=== PATIENT | female | born 1995 | race Caucasian/White ===

== ENCOUNTER 2019-05-12 23:08 | Outpatient (REF) | payer MEDICAID, SELFPAY ==
[2019-05-12 22:13] LABS: TSH (W/Ref FT4) 0.46 uIU/mL (0.36-3.74)
== END 2019-05-12 23:28 ==
LOC: LBN 23:08
PROVIDERS: PCP Internal Medicine; Visit Provider Internal Medicine
DX: E03.9 Hypothyroidism, unspecified (principal)
CPT/HCPCS: 84443

== ENCOUNTER 2020-05-17 16:58 | Outpatient (REF) | payer MEDICAID, SELFPAY | END 2020-05-17 17:18 | LOC: LBO 16:58 | PROVIDERS: PCP Internal Medicine; Visit Provider Internal Medicine | DX: E03.9 Hypothyroidism, unspecified (principal) | CPT/HCPCS: 84443 ==

== ENCOUNTER 2021-05-09 22:05 | Outpatient (REF) | payer MEDICAID, SELFPAY ==
[2021-05-09 20:07] LABS: TSH (W/Ref FT4) 2.51 uIU/mL (0.36-3.74)
== END 2021-05-09 22:06 | disposition home or self-care (01) ==
LOC: LBN 22:05
PROVIDERS: PCP Internal Medicine; Visit Provider Internal Medicine
DX: E03.9 Hypothyroidism, unspecified (principal)
CPT/HCPCS: 84443

== ENCOUNTER 2022-03-20 15:35 | Outpatient (REF) | payer MEDICAID, SELFPAY | END 2022-03-20 15:36 | disposition home or self-care (01) | LOC: LBN 15:35 | PROVIDERS: PCP Internal Medicine; Referring Provider Internal Medicine; Visit Provider Internal Medicine | DX: E03.9 Hypothyroidism, unspecified (principal); R03.0 Elevated blood-pressure reading, without diagnosis of hypertension | CPT/HCPCS: 84443 ==

== ENCOUNTER 2023-01-09 15:43 | Outpatient (REF) | payer MEDICAID, SELFPAY ==
[2023-01-09 19:14] LABS: HCT 30.9 % (36.0-46.0); HGB 9.7 g/dL (11.2-15.7); MCHC 31.4 % (32.0-36.0); MCV 83 fL (80-95); MPV 11.2 fL (8.0-11.0); Platelet Count 444 10^3/uL (130-400); RBC 3.73 10^6/uL (3.93-5.22); RDW 17.5 % (11.7-14.6); RDW-SD 52.5 fL
[2023-01-09 19:42] LABS: ALT 15 U/L (14-59); AST 11 U/L (15-37); Albumin 3.1 g/dL (3.4-5.0); Alkaline Phosphatase 57 U/L (46-116); Anion Gap 9.1 mmol/L (3-11); BUN 11 mg/dL (7-18); Bilirubin, Total 0.2 mg/dL (0.2-1.0); CO2 26.9 mmol/L (21.0-32.0); CREATININE 0.7 mg/dL (0.55-1.02); Calcium 8.3 mg/dL (8.5-10.1); Calculated LDL 151 mg/dL (<100); Chloride 104 mmol/L (98-107); Cholesterol 265 mg/dL (<200); Estimated GFR 119.99 (mL/min/1.73m2); Glucose 78 mg/dL (74-106); HDL Cholesterol 69 mg/dL (40-60); Potassium 4.2 mmol/L (3.5-5.1); Sodium 140 mmol/L (136-145); Total Protein 7.8 g/dL (6.4-8.2); Triglyceride 228 mg/dL (<150)
== END 2023-01-09 15:44 | disposition home or self-care (01) ==
LOC: LBN 15:43
PROVIDERS: PCP Nurse Practitioner; Referring Provider Nurse Practitioner; Visit Provider Nurse Practitioner
DX: I10 Essential (primary) hypertension (principal); E03.9 Hypothyroidism, unspecified; F41.8 Other specified anxiety disorders; F32.89 Other specified depressive episodes; R79.89 Other specified abnormal findings of blood chemistry; E66.01 Morbid (severe) obesity due to excess calories
CPT/HCPCS: 80053; 80061; 85027; 83036; 84443

== ENCOUNTER 2024-01-14 20:39 | Outpatient (REF) | payer MEDICAID, SELFPAY ==
[2024-01-14 21:59] LABS: Abs Immature Grans 0.01 10^3/uL (0.0-0.06); Absolute Basophil Count 0.03 10^3/uL (0.0-0.2); Absolute Eosinophil Count 0.18 10^3/uL (0.0-0.7); Absolute Lymphocyte Count 2.76 10^3/uL (1.2-3.4); Absolute Monocyte Count 0.55 10^3/uL (0.1-0.8); Absolute Neutrophil Count 5.09 10^3/uL (1.2-6.7); Basophils % 0.3 %; Eosinophils % 2.1 %; HCT 33.7 % (36.0-46.0); HGB 10.8 g/dL (11.2-15.7); Immature Grans % 0.1 %; MCH 26.9 pg (27.0-33.0); MCV 84 fL (80-95); MPV 12.1 fL (8.0-11.0); Monocytes % 6.4 %; Neutrophils % 59.1 %; Platelet Count 388 10^3/uL (130-400); RBC 4.01 10^6/uL (3.93-5.22); RDW 16.2 % (11.7-14.6); RDW-SD 50.1 fL; WBC 8.62 10^3/uL (4.4-10.8)
[2024-01-14 22:15] LABS: ALT 20 U/L (14-59); AST 14 U/L (15-37); Albumin 3.2 g/dL (3.4-5.0); Alkaline Phosphatase 59 U/L (46-116); Anion Gap 9.2 mmol/L (3-11); BUN 10 mg/dL (7-18); Bilirubin, Total 0.2 mg/dL (0.2-1.0); CO2 25.8 mmol/L (21.0-32.0); CREATININE 0.8 mg/dL (0.55-1.02); Calcium 8.4 mg/dL (8.5-10.1); Calculated LDL 164 mg/dL (<100); Chloride 104 mmol/L (98-107); Cholesterol 276 mg/dL (<200); Estimated GFR 101.59 (mL/min/1.73m2); Glucose 83 mg/dL (74-106); HDL Cholesterol 76 mg/dL (40-60); Potassium 4.2 mmol/L (3.5-5.1); Sodium 139 mmol/L (136-145); TSH (W/Ref FT4) 10.62 uIU/mL (0.36-3.74); Total Protein 7.6 g/dL (6.4-8.2); Triglyceride 180 mg/dL (<150)
== END 2024-01-14 20:40 | disposition home or self-care (01) ==
LOC: LBN 20:39
PROVIDERS: PCP Nurse Practitioner; Visit Provider Nurse Practitioner
DX: E78.5 Hyperlipidemia, unspecified (principal); E03.9 Hypothyroidism, unspecified; F41.8 Other specified anxiety disorders; F32.89 Other specified depressive episodes; K21.9 Gastro-esophageal reflux disease without esophagitis
CPT/HCPCS: 80053; 80061; 84439; 84443; 85025

== ENCOUNTER 2024-06-08 11:35 | Emergency (ER) | payer MEDICAID, SELFPAY ==
[2024-06-08 11:44] VITALS: BP 137/83; PULSE 114; RESP 16; TEMP 38.3; O2SAT 99
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
--- NOTE | 2024-06-08 13:27 | DI.CT_ITS ---
Exam(s) CT NECK W EXAM: CT NECK W CLINICAL HISTORY: ulcerative lesions mouth, diff swallowing/opening. TECHNIQUE: Imaging Protocol: Axial computed tomography images with coronal and sagittal reformatted images were created and reviewed. CONTRAST MATERIAL: Intravenous: Omnipaque 350 Contrast volume:100mL COMPARISON: No exams were available for comparison FINDINGS: Orbits and orbital soft tissues: Within normal limits. Visualized paranasal sinuses: There is mild mucosal thickening in the left sphenoid sinus. The arely ining visualized paranasal sinuses and mastoid air cells are clear. Pharynx: The tonsils are symmetrically enlarged. No fluid attenuation is seen to suggest an abscess. Larynx: Within normal limits. Retropharyngeal space: Within normal limits. Parotids/submandibular: Within normal limits. Thyroid gland: Within normal limits. Lymphadenopathy: There are mildly enlarged lymph nodes seen in the neck particularly on the left in the submandibular region and around the carotid bifurcation. These are likely reactive. Trachea: Within normal limits. Lung apices: Within normal limits. Bones: Within normal limits for the patient's age. Carotids/Jugular: Within normal limits. Soft tissues: Within normal limits. IMPRESSION: 1. Enlarged tonsils bilaterally suggestive of tonsillitis. No abscess is identified. No significant airway narrowing is seen. 2. Mildly enlarged lymph nodes in the neck particularly on the left which are likely reactive. RADIATION DOSE DELIVERED: 293.95mGy.cm Total DLP 293.95mGy.cm Total DLP DATA REPOSITORY: All CT scans at this facility are submitted to the National Radiology Data Registry (NRDR) Dose Index Registry (DIR) with the [employer] (ACR). RADIATION OPTIMIZATION: All CT scans at this facility use at least one of these dose optimization te chniques: automated exposure control; mA and/or kV adjustment per patient size (includes targeted exa ms where dose is matched to clinical indication); or iterative reconstruction.
[2024-06-08 13:38] LABS: Abs Immature Grans 0.02 10^3/uL (0.0-0.06); Absolute Basophil Count 0.02 10^3/uL (0.0-0.2); Absolute Eosinophil Count 0.01 10^3/uL (0.0-0.7); Absolute Neutrophil Count 5.75 10^3/uL (1.2-6.7); Basophils % 0.2 %; Eosinophils % 0.1 %; HGB 11.9 g/dL (11.2-15.7); Immature Grans % 0.2 %; Lymphocytes % 17.3 %; MCH 27.4 pg (27.0-33.0); MCHC 32.2 % (32.0-36.0); MCV 85 fL (80-95); MPV 10.4 fL (8.0-11.0); Monocytes % 11.1 %; Neutrophils % 71.1 %; Platelet Count 302 10^3/uL (130-400); RBC 4.35 10^6/uL (3.93-5.22); RDW 15.9 % (11.7-14.6); RDW-SD 49.5 fL
[2024-06-08] MEDS: ACETAMINOPHEN 1,000 MG/100 ML BTL 400 MG IVPB (13:43)
[2024-06-08] MEDS: Magic Mouthwash 119 ML BTL 10 ML MM (13:44)
[2024-06-08 13:46] VITALS: BP 120/74
[2024-06-08 13:48] LABS: ESR 37 mm/hr (0-20)
[2024-06-08 13:53] LABS: ALT 55 U/L (14-59); AST 46 U/L (15-37); Albumin 3.3 g/dL (3.4-5.0); Alkaline Phosphatase 85 U/L (46-116); Anion Gap 13.5 mmol/L (3-11); BUN 14 mg/dL (7-18); Bilirubin, Total 0.26 mg/dL (0.2-1.0); CO2 24.5 mmol/L (21.0-32.0); Calcium 8.5 mg/dL (8.5-10.1); Chloride 103 mmol/L (98-107); Estimated GFR 77.24 (mL/min/1.73m2); Glucose 107 mg/dL (74-106); Potassium 3.5 mmol/L (3.5-5.1); Sodium 141 mmol/L (136-145)
[2024-06-08] MEDS: Normal Saline - Diluent 50 ML VIAL IJ (14:18)
[2024-06-08] MEDS: Omnipaque 350 MG/ML 500 ML BTL-Imaging package IJ (14:19)
[2024-06-08 15:24] VITALS: BP 126/88; PULSE 88; RESP 18; TEMP 36.8; O2SAT 97
== END 2024-06-08 15:25 | disposition home or self-care (01) ==
PROVIDERS: Emergency Provider Physician Assistant; PCP Nurse Practitioner
DX: R50.9 Fever, unspecified; K13.79 Other lesions of oral mucosa; B00.2 Herpesviral gingivostomatitis and pharyngotonsillitis
CPT/HCPCS: 70491; 80053; 85652; 96365; 99285; 85025; 86140; 99283; J0131

== ENCOUNTER 2024-09-28 15:29 | Outpatient (REF) | payer MEDICAID, SELFPAY ==
[2024-09-28 19:42] LABS: Hemoglobin A1C 5.5 % (<5.7)
[2024-09-28 19:47] LABS: TSH (W/Ref FT4) 0.89 uIU/mL (0.36-3.74)
[2024-09-29 19:38] LABS: HIV-1/2 Ag & Ab Screen Negative (Negative)
[2024-09-29 19:50] LABS: Hepatitis C Ab w Rflx HCV PCR Negative (Negative)
== END 2024-09-28 15:30 | disposition home or self-care (01) ==
LOC: LBN 15:29
PROVIDERS: PCP Nurse Practitioner; Visit Provider Nurse Practitioner
DX: Z11.59 Encounter for screening for other viral diseases (principal); E03.9 Hypothyroidism, unspecified; E66.9 Obesity, unspecified; R73.01 Impaired fasting glucose
CPT/HCPCS: 86803; 87389; 83036; 84443

== ENCOUNTER 2024-10-06 01:27 | Outpatient (CLI) | payer MEDICAID, SELFPAY ==
--- NOTE | 2024-10-06 12:30 | DI.US_ITS ---
APPROVED REPORT EXAM: Comprehensive 2D, Doppler, and color-flow Echocardiogram Patient Location: Out-Patient Child Nutrition Manager: Masoud Montes RDCS (AE) Indications: Systolic murmur Conclusion Normal left ventricular wall thickness and chamber size. Ejection fraction is 65%. Wall motion is n ormal Normal right ventricular size and function Both atria are normal in size There is no structural or hemodynamically significant valvular disease Wall motion Left Ventricle The left ventricle is normal size. Left ventricular systolic function is normal. The left ventricular ejection fraction is within the normal range. There is normal left ventricular wall thickness. There is normal LV segmental wall motion. The left ventricular diastolic function is normal. There is no v entricular septal defect visualized. LVEF is 65% Right Ventricle The right ventricle is normal size. The right ventricular systolic function is normal. Atria The left atrium size is normal. The right atrium size is normal. Aortic Valve Aortic valve is trileaflet. There is no aortic valvular stenosis. No aortic regurgitation is present. Mitral Valve The mitral valve is normal in structure. No evidence of mitral valve stenosis. There is no mitral denny ve regurgitation noted. Tricuspid Valve The tricuspid valve is normal in structure. There is no tricuspid valve stenosis. Trace tricuspid reg urgitation. The RVSP is 15.4 mmHg. Pulmonic Valve The pulmonary valve is normal in structure. There is no pulmonic valvular stenosis. Trace pulmonic re gurgitation. Great Vessels The aortic root is normal in size. The ascending aorta is normal in size. Aortic arch is normal in ca liber. IVC is normal in size and collapses >50% with inspiration. Pericardium There is no pericardial effusion. 2D Dimensions IVSD d PLAX 0.68 cm F: 0.6-1.0 Ao Root d 2.17 cm F: 2.7 - 3.3 LVPW d PLAX 0.67 cm F: 0.6 - 1.0 Ao Asc Diam d 2.30 cm F: 2.3 - 3.1 LVID d PLAX 4.87 cm F: 3.8 - 5.2 LVDs 3.16 cm F: 2.2 - 3.5 LV EF Teichholz 64.2 % FS 35.06 % LV EDV (Teich) 111.2 mL LV ESV (Teich) 39.8 mL Stroke Vol Index (Teich) 37.79 M-Mode TAPSE 2.48 cm (M/F) >1.7 Auto EF LV EDV A4C 102.7 mL LV EDV A2C 107.4 mL LV EDV BP 105.8 mL LV ESV A4C 39.4 mL LV ESV A2C 42.4 mL LV ESV BP 40.9 mL LVEF(%) A4C 61.6 % LVEF(%) A2C 60.6 % LVEF(%) BP 61.3 % LV SV A4C 63.3 ml LV SV A2C 65.0 ml LV SV BP 64.8 ml LV CO A4C 4.6 L/min LV CO A2C 4.9 L/min LV CO BP 4.7 L/min HR A4C 73.17 BPM HR A2C 74.69 BPM LV EDV Index (BP) LA Volume LA Length A4C 3.5 cm LA Length A2C 3.1 cm LA Area A4C s 7.94 cm2 LA Area A2C s 5.57 cm2 LA Vol A4C A-L 15.32 mL LA Vol A2C A-L 8.55 mL LA Vol Biplane A-L 12.2 mL LA Vol/BSA A4C A-L LA Vol/BSA A2C A-L LA Vol/BSA BP A-L 6.5 mL/m2 LA Vol A4C MOD 13.8 mL LA Vol A2C MOD 8.1 mL LA Vol BP MOD 11.1 mL RA Volume RA Area A4C 7.7 cm2 RA ESV A4C (A-L) 12.7mL RA Vol/BSA A4C A-L RA Length A4C 4.0 cm RA ESV A4C (MOD) 12.1mL LV Diastology MV E' medial 0.134 (>0.07 m/s) MV E Vmax 1.20 (0.4-1.3 m/s) MV E/E' MED 8.96 (<14) MV A Vmax 0.80 (0.4-1.3 m/s) MV E' lateral 0.144 (>0.1 m/s) E/A Ratio 1.5 MV E/E' LAT 8.31 (<14) MV E' Average 0.139 m/s MV E/E'(average) 8.62 Aortic Valve AoV Vmax 1.53 m/s LVOT Vmax 1.25 m/s AoV Peak Grad 9.3 mmHg LVOT Peak Grad 6.2 mmHg AoV Area (Vmax) 1.78 cm2 LVOT VTI 0.268 m AoV VTI 0.328 m LVOT Mean Grad 4.1 mmHg AoV Mean Feliz. 1.12 m/s LVOT SV 58.54 mL AoV Mean Grad 5.6 mmHg LVOT Diam s 1.65 cm AoV Area (VTI) 1.78 cm2 AV Regurg Peak Gr. 9.33 mmHg Velocity Ratio 0.82 Mitral Valve MV DT 170 (160-240 msec) MV Vmax TIPS 1.37 m/s MV Mean Grad 2.6 (<2mmHg) MV VTI 0.316 m Pulmonary Valve PV Vmax 1.11 (0.5-1.5 m/s) RVOT Vmax 0.88 m/s PV Peak Grad 5.0 mmHg RVOT Peak Gr. 3.1 mmHg PV Mean Feliz 0.86 m/s RVOT VTI 0.175 m PV Mean Grad 3.2 mmHg RVOT Mean Gr. 1.6 mmHg Tricuspid Valve RA Pressure 3.00 mmHg TR Vmax 1.76 m/s TR Peak Grad 12.4 mmHg RVSP (TR) 15.4 mmHg
== END 2024-10-06 01:47 ==
LOC: DI 01:27
PROVIDERS: PCP Nurse Practitioner; Visit Provider Internal Medicine Cardiovascular Disease
DX: R01.1 Cardiac murmur, unspecified (principal)
CPT/HCPCS: 93306

== ENCOUNTER 2025-01-13 08:54 | Outpatient (CLI) | payer MEDICAID, SELFPAY ==
[2025-01-13 10:42] LABS: Calculated LDL 177 mg/dL (<100); Cholesterol 286 mg/dL (<200); HDL Cholesterol 88 mg/dL (>or=50); Triglyceride 106 mg/dL (<150)
== END 2025-01-13 08:55 | disposition home or self-care (01) ==
PROVIDERS: PCP Nurse Practitioner; Visit Provider Nurse Practitioner
DX: E78.5 Hyperlipidemia, unspecified (principal)
CPT/HCPCS: 36415; 80061